=== PATIENT | male | born 1955 | race American Indian/Alaskan Native ===

== ENCOUNTER 2018-02-13 18:01 | Emergency (ER) | payer SELFPAY ==
[2018-02-13 18:16] VITALS: BMI 24.1
[2018-02-13 18:20] VITALS: PULSE 84; RESP 18
--- NOTE | 2018-02-13 18:29 | ED PDOC ---
Arrival/HPI - General Chief Complaint: Cough, Cold, Congestion Time Seen by Provider: 02/13/18 18:20 Historian: Patient - History of Present Illness Narrative History of Present Illness (Text): 02/13/18 19:19 62 y/o male with PMH of asthma presents to the ED c/o sinus congestion and productive cough x 3 days. Cough is productive of yellow sputum. Denies flu shot or sick contacts. No recent travel. Denies fevers, chills, abdominal pain, N/V/D, chest pain, SOB, headache, myalgias, back pain, urinary symptoms, palpitations, diaphoresis, hemoptysis, numbness, paresthesias, weakness, or any other associated symptoms. Past Medical History - Provider Review Nursing Documentation Reviewed: Yes - Infectious Disease Hx of Infectious Diseases: None - Cardiac Hx Cardiac Disorders: No - Pulmonary Hx Respiratory Disorders: Yes Hx Asthma: Yes - Neurological Hx Neurological Disorder: No - HEENT Hx HEENT Disorder: No - Renal Hx Renal Disorder: No - Endocrine/Metabolic Hx Endocrine Disorders: No - Hematological/Oncological Hx Blood Disorders: No - Integumentary Hx Dermatological Disorder: No - Musculoskeletal/Rheumatological Hx Musculoskeletal Disorders: No - Gastrointestinal Hx Gastrointestinal Disorders: No - Genitourinary/Gynecological Hx Genitourinary Disorders: No - Psychiatric Hx Psychophysiologic Disorder: No Hx Substance Use: Yes (heroin in the past) Family/Social History - Physician Review Nursing Documentation Reviewed: Yes Family/Social History: No Known Family HX Smoking Status: Former Smoker Hx Alcohol Use: Yes Frequency of alcohol use: Socially Hx Substance Use: Yes (heroin in the past) Allergies/Home Meds Allergies/Adverse Reactions: Allergies No Known Allergies Allergy (Verified 02/13/18 18:20) Physical Exam Vital Signs Reviewed: Yes Vital Signs Temp Pulse Resp BP Pulse Ox 02/13/18 18:16 99.6 F 84 18 127/74 95 Temperature: Afebrile Blood Pressure: Normal Pulse: Regular Respiratory Rate: Normal Appearance: Positive for: Well-Appearing, Non-Toxic, Comfortable Pain Distress: None Mental Status: Positive for: Alert and Oriented X 3 - Systems Exam Head: Present: Atraumatic, Normocephalic Pupils: Present: PERRL Extroacular Muscles: Present: EOMI Conjunctiva: Present: Normal Ears: Present: Normal, NORMAL TM, Normal Canal Mouth: Present: Moist Mucous Membranes Pharnyx: Present: Normal. No: ERYTHEMA, EXUDATE Nose (External): Present: Atraumatic Nose (Internal): Present: Normal Inspection Neck: Present: Normal Range of Motion. No: Meningeal Signs, MIDLINE TENDERNESS, Paraspinal Tenderness, Lymphadenopathy Respiratory/Chest: Present: Good Air Exchange, Wheezes (bilateral expiratory diffuse), Rhonchi (bilateral intermittent diffuse). No: Respiratory Distress, Accessory Muscle Use, Rales, Tachypneic, Tender to Palpation Cardiovascular: Present: Regular Rate and Rhythm, Normal S1, S2, Peripheal Pulses Present. No: Murmurs Abdomen: Present: Normal Bowel Sounds. No: Tenderness, Distention, Peritoneal Signs, Rebound, Guarding Back: Present: Normal Inspection. No: CVA Tenderness Upper Extremity: Present: Normal Inspection, Normal ROM, NORMAL PULSES, Neurovascularly Intact, Capillary Refill < 2s. No: Cyanosis, Edema Lower Extremity: Present: Normal Inspection, NORMAL PULSES, Normal ROM, Neurovascularly Intact, Capillary Refill < 2 s. No: Edema, CALF TENDERNESS Neurological: Present: GCS=15, CN II-XII Intact, Speech Normal, Motor Func Grossly Intact, Normal Sensory Function, Gait Normal Skin: Present: Warm, Dry, Normal Color. No: Rashes Lymphatic: No: Cervical Adenopathy Psychiatric: Present: Alert, Oriented x 3, Normal Insight, Normal Concentration, Normal Affect, Normal Mood Medical Decision Making ED Course and Treatment: Initial Plan: * CBC, CMP * CXR * Duoneb * Solumedrol Patient reports significant improvement in symptoms after solumedrol and duoneb. Lung exam has improved, with decreased bilateral wheezing. Intermittent rhonchi and wheezing remain. Patient asking for food. Tolerated smita crackers, juice, and pudding without difficulty, no vomiting. Lab results show mild anemia, advised to followup in clinic, otherwise unremarkable CXR: possible right sided infiltrate, will give Z-cha and recommend followup for repeat CXR. Case discussed with Dr. Holland who recommends discharge home with Z-cha and Prednisone. Advises no empiric Tamiflu secondary to 3 day history of symptoms and negative flu test. Plan of care discussed with patient, and strict instructions given regarding prescriptions, importance of follow up, and signs to return to Emergency Department, to include headache, SOB, chest pain, or any other new/worsening symptoms. Patient verbalizes understanding of discussion. Patient A&Ox3, ambulating with steady gait, stable for discharge home. - Lab Interpretations Narrative Lab Interpretation (Text): 02/13/18 21:24 02/13/18 19:16 02/13/18 19:16 Lab Results 02/13/18 19:30: Influenza Typ A,B (EIA) Negative for flu a/b 02/13/18 19:16: Sodium 138, Potassium 4.1, Chloride 106, Carbon Dioxide 27, Anion Gap 9 L, BUN 17, Creatinine 0.9, Est GFR ( Amer) > 60, Est GFR (Non-Af Amer) > 60, Random Glucose 93, Calcium 8.7, Total Bilirubin 0.5, AST 41, ALT 35, Alkaline Phosphatase 74, Total Protein 7.2, Albumin 4.1, Globulin 3.2, Albumin/Globulin Ratio 1.3 02/13/18 19:16: WBC 7.1, RBC 4.43, Hgb 13.3 L, Hct 38.7 L, MCV 87.4, MCH 30.0, MCHC 34.4, RDW 12.0, Plt Count 202, MPV 8.4, Gran % 72.7 H, Lymph % (Auto) 20.5 L, Walsh % (Auto) 6.4 H, Eos % (Auto) 0.1 L, Baso % (Auto) 0.3, Gran # 5.13, Lymph # (Auto) 1.5, Walsh # (Auto) 0.5, Eos # (Auto) 0.0, Baso # (Auto) 0.02 I have reviewed the lab results: Yes Interpretation: All labs normal - RAD Interpretation Narrative RAD Interpretations (Text): 02/13/18 21:31 CXR possible right sided infiltrate Meter Reader Inspector: ED Physician (Dr. Holland) Disposition/Present on Arrival - Present on Arrival Any Indicators Present on Arrival: No History of DVT/PE: No History of Uncontrolled Diabetes: No Urinary Catheter: No History of Decub. Ulcer: No History Surgical Site Infection Following: None - Disposition Have Diagnosis and Disposition been Completed?: Yes Diagnosis: Asthma exacerbation, Lower respiratory infection Disposition: HOME/ ROUTINE Disposition Time: 20:00 Patient Plan: Discharge Condition: IMPROVED Discharge Instructions (ExitCare): Asthma in Adults Additional Instructions: Take antibiotics as prescribed Take steroids daily as prescribed Use ventolin inhaler every 6 hours as needed Increase fluids Rest, no strenuous activity Followup with primary doctor within 2 days Return to ER for new/worsening symptoms Prescriptions: Albuterol HFA [Ventolin HFA 90 mcg/actuation (8 g)] 2 puff IH [id number] PRN #60 puff PRN Reason: Cough Azithromycin 250 mg PO DAILY #4 tablet Prednisone [Deltasone] 20 mg PO DAILY 4 Days #8 tablet Referrals: [facility] [place] [Outside] - Follow up with primary Josephine Beltrán MD [Medical Doctor] - Follow up with primary Forms: [facility] (Welsh), WORK NOTE
[2018-02-13] MEDS ORDERED: Albuterol-Ipratrop 3 mg / 0.5 (3 ml) UD IH STA (18:36)
[2018-02-13 19:21] LABS: BASO # 0.02 K/mm3 (0.0-2.0); BASO % 0.3 % (0.0-3.0); EOS % 0.1 % (1.5-5.0); GRAN # 5.13 (1.4-6.5); GRAN % 72.7 % (50.0-68.0); HEMOGLOBIN 13.3 g/dL (14.0-18.0); LYMPH # 1.5 (1.2-3.4); LYMPH % 20.5 % (22.0-35.0); MEAN CELL VOLUME 87.4 fl (80.0-105.0); MEAN CORPUSCULAR HGB CONC 34.4 g/dl (31.0-37.0); MEAN PLATELET VOLUME 8.4 fl (7.0-11.0); MONO # 0.5 (0.1-0.6); MONO % 6.4 % (1.0-6.0); RBC 4.43 10^6/uL (3.5-6.1); WHITE BLOOD COUNT 7.1 10^3/uL (4.5-11.0)
[2018-02-13 19:31] LABS: ALB/GLOB RATIO 1.3 (1.1-1.8); ALBUMIN 4.1 g/dL (3.0-4.8); ALT/SGPT 35 U/L (7-56); AST/SGOT 41 U/L (17-59); BLOOD UREA NITROGEN 17 mg/dL (7-21); CALCIUM 8.7 mg/dL (8.4-10.5); GFR NON-AFRICAN AMERICAN > 60
[2018-02-13 21:07] VITALS: BP 124/77; TEMP 99; O2SAT 97
--- NOTE | 2018-02-14 09:25 | RAD ---
Date of service: 02/13/2018 HISTORY: cough COMPARISON: No prior. FINDINGS: LUNGS: No active pulmonary disease. PLEURA: No significant pleural effusion identified, no pneumothorax apparent. CARDIOVASCULAR: Aortic calcification Normal cardiac size. No pulmonary vascular congestion. OSSEOUS STRUCTURES: No significant abnormalities. VISUALIZED UPPER ABDOMEN: Normal. OTHER FINDINGS: None. IMPRESSION: No active disease.
== END 2018-02-13 21:09 | disposition home or self-care (01) ==
LOC: ED 18:01
DX: J45.901 Unspecified asthma with (acute) exacerbation (principal); J22 Unspecified acute lower respiratory infection; Z87.891 Personal history of nicotine dependence
CPT/HCPCS: 71045; 80053; 85025; 87804; 96374; 99283; J2930